=== PATIENT | female | born 1935 | race Caucasian/White ===

== ENCOUNTER → 2024-04-05 | Outpatient (CLI) | payer MEDICARE, SELFPAY ==
--- NOTE | 2024-04-05 09:01 | BD_ITS ---
STUDY: DUAL ENERGY X-RAY ABSORPTIOMETRY / DXA REASON FOR EXAM: Female, 88 years old. M810 TECHNIQUE: Bone Mineral Density (BMD) measurements of lumbar spine and right hip were obtained. COMPARISON: None. FINDINGS: Lumbar Spine (L1-L4): g/cm2 (0.565) / T-score (-4.4) / Z-score (-1.5) Findings are suggestive of osteoporosis with a high fracture risk. Right Femur Total: g/cm2 (0.451) / T-score (-4.0) / Z-score (-1.7) Right Femoral Neck: g/cm2 (0.343) / T-score (-4.6) / Z-score (-2.0) BD/Dexa Bone Density Study IMPRESSION: The patient is considered osteoporotic as outlined below according to World Henry Organization (WHO) criteria with a high fracture risk. Reference Information: The T-score is the number of standard deviations above or below the standard which is normal for young adults at their peak bone mineral density. The World Health Organization (WHO) interprets the T-scores as follows: Above -1 Normal bone density Between -1 and -2.5 Osteopenia Equal to / or below -2.5 Osteoporosis As a practical clinical guideline, osteopenia may be graded as follows: Mild -1 through -1.5 Moderate -1.6 through -2.0 Severe -2.1 through -2.4 The Z-score is the number of standard deviations above or below age-matched controls. A Z-score of less than -1.5 would be considered abnormal. References: 1. NIH Osteoporosis and Related Bone Diseases www osteo.org 2. International Society for Clinical Densitometry www iscd.org 3. National Osteoporosis Foundation www nof.org Electronically Signed: Monroe Elam MD at 14:21 EDT ,
== END | disposition home or self-care (01) ==
LOC: OPBD 08:52
PROVIDERS: PCP Internal Medicine; Referring Provider Internal Medicine; Visit Provider Internal Medicine
DX: M81.8 Other osteoporosis without current pathological fracture (principal); I48.20 Chronic atrial fibrillation, unspecified
CPT/HCPCS: 77080; 93225; 93226

== ENCOUNTER → 2024-04-18 | Outpatient (CLI) | payer MEDICARE, SELFPAY ==
--- NOTE | 2024-04-18 14:48 | CT_ITS ---
STUDY: CT BRAIN WITH AND WITHOUT CONTRAST REASON FOR EXAM: Female, 88 years old. Memory loss, with and without contrast -- memory loss, with and without contrast RADIATION DOSAGE (If Supplied By Facility): CTDIvol = ( 44.99 ) mGy, DLP = ( 1648.46 ) mGycm TECHNIQUE: Transaxial CT imaging of the brain was performed pre and post contrast administration. The examination was performed with intravenous administration of 100mL Isovue 370. Individualized dose optimization techniques were used for this CT. COMPARISON: None. FINDINGS: Normal soft tissue structures. Normal calvarium. There is moderate cerebral atrophy with widening of the extra-axial spaces and ventricular dilatation. There are areas of decreased attenuation within the white matter tracts of the supratentorial brain, consistent with microvascular disease changes. Normal basal ganglia and thalami. Normal brainstem. Normal cerebellum. There is no intracranial hemorrhage. There are no findings of an acute ischemic infarction. Atherosclerotic calcification of the cavernous portions of the internal carotid arteries bilaterally. Normal visualized paranasal sinuses. CT/Brain/Head W/WO Contrast IMPRESSION: Chronic involutional changes of the brain. Electronically Signed: Monroe Elam MD at 15:41 EDT ,
[2024-04-18 15:23] LABS: CREATININE FINGERSTICK 1.4 mg/dL (0.55-1.02)
== END | disposition home or self-care (01) ==
LOC: CT 14:46
PROVIDERS: PCP Internal Medicine; Referring Provider Internal Medicine; Visit Provider Internal Medicine
DX: R41.3 Other amnesia (principal)
CPT/HCPCS: 70470; Q9967

== ENCOUNTER → 2024-04-19 | Outpatient (CLI) | payer MEDICARE, SELFPAY ==
--- NOTE | 2024-04-19 13:04 | ECHOD_ITS ---
Reason For Study: AFib Procedure This was a 2D Doppler, Color Flow transthoracic echocardiogram. Exam performed in department. Left Ventricle Normal LV size. The estimated ejection fraction is 60 %. Unable to assess diastolic dysfunction. No regional wall motion abnormalities noted. Right Ventricle Normal RV size. Normal systolic function. Atria The left atrium is severely enlarged. The right atrium is mildly enlarged. No doppler evidence for ASD. Mitral Valve Mild mitral valve prolapse, posterior leaflet. There is no mitral valve stenosis. Trivial mitral valve insufficiency. Tricuspid Valve There is no tricuspid stenosis. Trivial tricuspid valve insufficiency. Pulmonary artery systolic pressure is 40 mmHg. Aortic Valve Trisinus/trileaflet aortic valve. Aortic sclerosis, no stenosis. There is no aortic stenosis. Trivial aortic valve insufficiency. Pulmonic Valve There is no pulmonic valvular stenosis. No pulmonic valve insufficiency. Great Vessels Normal aortic root. Pericardium/Pleural No pericardial effusion. MMode/2D Measurements & Calculations LVIDd: 4.5 cm IVSd: 0.63 cm Ao root diam: 3.1 cm LVIDs: 2.9 cm LVPWd: 1.1 cm LA dimension: 4.6 cm RVDd: 3.4 cm FS: 37.1 % LAV(MOD-bp): 96.6 ml LVAd ap4: 21.3 cm2 SV(MOD-sp4): 30.8 ml LAV(MOD-bp) Indexed: 64.2 ml/m2 LVLd ap4: 6.5 cm LAV(MOD-sp2): 86.5 ml EDV(MOD-sp4): 56.3 ml LAV(MOD-sp4): 90.7 ml EDV(sp4-el): 59.2 ml LVAs ap4: 12.9 cm2 LVLs ap4: 5.5 cm ESV(MOD-sp4): 25.5 ml ESV(sp4-el): 25.5 ml EF(MOD-sp4): 54.7 % EF(sp4-el): 56.9 % SV(sp4-el): 33.7 ml LA A4 area: 27.8 cm2 RA A4 area: 19.8 cm2 Time Measurements MV dec time: 0.19 sec Doppler Measurements & Calculations MV E max jh: 109.9 cm/sec Lat Peak E' Jh: 7.1 cm/sec Med Peak E' Jh: 5.5 cm/sec MV A max jh: 106.1 cm/sec E/E' lat: 15.5 E/E' med: 20.0 MV E/A: 1.0 MV V2 max: 115.4 cm/sec MV P1/2t max jh: 115.4 cm/sec Ao V2 max: 160.2 cm/sec MV max P.3 mmHg MV P1/2t: 63.1 msec Ao max P.3 mmHg MV V2 mean: 62.4 cm/sec Ao V2 mean: 105.7 cm/sec MV mean P.9 mmHg MV dec slope: 535.5 cm/sec2 Ao mean P.1 mmHg MV V2 VTI: 43.0 cm MVA(P1/2t): 3.5 cm2 Ao V2 VTI: 29.7 cm AV (velocity ratio): 0.93 AI max jh: 423.7 cm/sec LV V1 max: 144.9 cm/sec MR max jh: 595.8 cm/sec AI max P.9 mmHg LV V1 max P.4 mmHg MR max P.0 mmHg AI dec slope: 228.2 cm/sec2 LV V1 mean P.7 mmHg MR mean jh: 460.8 cm/sec AI P1/2t: 543.9 msec LV V1 mean: 88.0 cm/sec MR mean P.5 mmHg LV V1 VTI: 27.5 cm MR VTI: 174.9 cm PA V2 max: 57.5 cm/sec TR max jh: 327.0 cm/sec PA max PG (full): 0.04 mmHg TR max P.8 mmHg ECHO/Echo Complete Interpretation Summary The estimated ejection fraction is 60 %. Unable to assess diastolic dysfunction. The left atrium is severely enlarged. The right atrium is mildly enlarged. Trivial mitral valve insufficiency. Trivial aortic valve insufficiency. Ordering Physician: Prema Shi Referring Physician: Prema Shi Performed By: Beto Keller RCS
== END | disposition home or self-care (01) ==
LOC: CVS 13:00
PROVIDERS: PCP Internal Medicine; Referring Provider Internal Medicine; Visit Provider Internal Medicine
DX: I48.20 Chronic atrial fibrillation, unspecified (principal); M81.8 Other osteoporosis without current pathological fracture; R41.3 Other amnesia
CPT/HCPCS: 93306

== ENCOUNTER → 2024-07-12 | Outpatient (CLI) | payer MEDICARE, SELFPAY | END | disposition home or self-care (01) | LOC: PSN 10:31 | PROVIDERS: PCP Internal Medicine; Referring Provider Internal Medicine Cardiovascular Disease; Visit Provider Internal Medicine Cardiovascular Disease | DX: Z51.81 Encounter for therapeutic drug level monitoring (principal); Z79.899 Other long term (current) drug therapy | CPT/HCPCS: 94060; 94726; 94729 ==